=== PATIENT | male | born 1950 | race Caucasian/White ===

== ENCOUNTER 2020-05-05 08:18 | Outpatient (CLI) | payer MEDICARE, SELFPAY ==
[2020-05-05 08:44] LABS: Alanine Aminotransferase 21 U/L (4-50); Albumin Level 3.9 g/dL (3.5-5.1); Alkaline Phosphatase 72 U/L (38-126); Anion Gap -2 mmol/L (8-16); Aspartate Amino Transferase 23 U/L (17-59); Bilirubin,Total 0.5 mg/dL (0.2-1.3); Blood Urea Nitrogen 25 mg/dL (9-20); Calcium 9.6 mg/dL (8.4-10.2); Carbon Dioxide 38 mmol/L (22-30); Chloride 107 mmol/L (98-107); Cholesterol 123 mg/dL (0-200); Estimated Glomerular Filt Rate > 60; Glucose 97 mg/dL (75-110); HDL Direct 43 mg/dL; Potassium 4.7 mmol/L (3.4-5.0); Sodium 143 mmol/L (137-145); Triglycerides 75 mg/dL (<150)
[2020-05-05 08:55] LABS: LDL Cholesterol Direct 62 mg/dL
[2020-05-05 09:15] LABS: Prostate Specific Antigen 1.2 ng/mL (< OR = 4.0)
== END 2020-05-05 08:19 | disposition home or self-care (01) ==
PROVIDERS: PCP Family Medicine Adolescent Medicine; Visit Provider Family Medicine Adolescent Medicine
DX: E78.2 Mixed hyperlipidemia (principal); Z12.5 Encounter for screening for malignant neoplasm of prostate
CPT/HCPCS: 36415; 80053; 80061; 84153; G0103

== ENCOUNTER 2020-09-29 07:45 | Outpatient (CLI) | payer MEDICARE, SELFPAY ==
[2020-09-29 08:42] LABS: Alanine Aminotransferase 23 U/L (4-50); Albumin Level 4.1 g/dL (3.5-5.1); Alkaline Phosphatase 68 U/L (38-126); Anion Gap 4 mmol/L (8-16); Aspartate Amino Transferase 26 U/L (17-59); Bilirubin,Total 0.8 mg/dL (0.2-1.3); Blood Urea Nitrogen 24 mg/dL (9-20); Calcium 9.5 mg/dL (8.4-10.2); Carbon Dioxide 31 mmol/L (22-30); Chloride 105 mmol/L (98-107); Cholesterol 147 mg/dL (0-200); Estimated Glomerular Filt Rate > 60; Glucose 96 mg/dL (65-110); HDL Direct 53 mg/dL; Potassium 4.5 mmol/L (3.4-5.0); Sodium 140 mmol/L (137-145); Triglycerides 71 mg/dL (<150)
[2020-09-29 08:56] LABS: LDL Cholesterol Direct 62 mg/dL
[2020-09-29 09:09] LABS: Prostate Specific Antigen 1.3 ng/mL (< OR = 4.0)
== END 2020-09-29 07:46 | disposition home or self-care (01) ==
PROVIDERS: PCP Family Medicine Adolescent Medicine; Visit Provider Family Medicine Adolescent Medicine
DX: Z12.5 Encounter for screening for malignant neoplasm of prostate (principal); E78.2 Mixed hyperlipidemia
CPT/HCPCS: 36415; 80053; 80061; 84153; G0103

== ENCOUNTER 2021-10-26 07:03 | Outpatient (CLI) | payer MEDICARE, OTHER, SELFPAY ==
[2021-10-26 07:46] LABS: Alanine Aminotransferase 24 U/L (6-50); Albumin Level 4.3 g/dL (3.5-5.1); Alkaline Phosphatase 81 U/L (38-126); Anion Gap 6 mmol/L (8-16); Aspartate Amino Transferase 23 U/L (17-59); Bilirubin,Total 0.6 mg/dL (0.2-1.3); Blood Urea Nitrogen 22 mg/dL (9-20); Calcium 9.2 mg/dL (8.4-10.2); Carbon Dioxide 31 mmol/L (22-30); Chloride 104 mmol/L (98-107); Cholesterol 147 mg/dL (0-200); Estimated Glomerular Filt Rate > 60; Glucose 98 mg/dL (65-110); HDL Direct 48 mg/dL; Potassium 4.5 mmol/L (3.4-5.0); Sodium 141 mmol/L (137-145); Triglycerides 79 mg/dL (<150)
[2021-10-26 07:57] LABS: LDL Cholesterol Direct 66 mg/dL
[2021-10-26 10:05] LABS: Prostate Specific Antigen 1.7 ng/mL (< OR = 4.0)
== END 2021-10-26 07:04 | disposition home or self-care (01) ==
LOC: ANHLAB 07:05
PROVIDERS: PCP Family Medicine Adolescent Medicine; Visit Provider Family Medicine Adolescent Medicine
DX: Z12.5 Encounter for screening for malignant neoplasm of prostate (principal); E78.5 Hyperlipidemia, unspecified; K21.9 Gastro-esophageal reflux disease without esophagitis; I70.0 Atherosclerosis of aorta
CPT/HCPCS: 36415; 80053; 80061; 84153; G0103

== ENCOUNTER 2022-12-28 09:12 | Outpatient (CLI) | payer MEDICARE, SELFPAY ==
[2022-12-28 09:56] LABS: Alanine Aminotransferase 24 U/L (6-50); Albumin Level 4.1 g/dL (3.5-5.1); Alkaline Phosphatase 67 U/L (38-126); Anion Gap 2 mmol/L (8-16); Aspartate Amino Transferase 23 U/L (17-59); Bilirubin,Total 0.6 mg/dL (0.2-1.3); Blood Urea Nitrogen 24 mg/dL (9-20); Calcium 9.7 mg/dL (8.4-10.2); Carbon Dioxide 31 mmol/L (22-30); Chloride 106 mmol/L (98-107); Cholesterol 150 mg/dL (0-200); Estimated Glomerular Filt Rate > 60; Glucose 99 mg/dL (65-110); HDL Direct 46 mg/dL; Potassium 4.3 mmol/L (3.4-5.0); Sodium 139 mmol/L (137-145); Triglycerides 99 mg/dL (<150)
[2022-12-28 10:07] LABS: LDL Cholesterol Direct 83 mg/dL
[2022-12-28 10:25] LABS: Prostate Specific Antigen 2.2 ng/mL (< OR = 4.0)
== END 2022-12-28 09:13 | disposition home or self-care (01) ==
LOC: ANHLAB 09:19
PROVIDERS: PCP Family Medicine Adolescent Medicine; Visit Provider Family Medicine Adolescent Medicine
DX: E78.2 Mixed hyperlipidemia (principal); Z12.5 Encounter for screening for malignant neoplasm of prostate; I70.0 Atherosclerosis of aorta
CPT/HCPCS: 36415; 80053; 80061; 84153; G0103

== ENCOUNTER 2023-04-16 00:39 | Day surgery (SDC) | payer MEDICARE, SELFPAY ==
[2023-02-08 09:34] VITALS: BMI 26.2
--- NOTE | 2023-03-22 08:33 | PC.NURSE ---
Pt was rescheduled from 02/23/2023 to now 04/16/2023. PAT call was completed in February. Pt states no changes in health history or medications since then. Pt aware of new date and time 04/16/2023 at 0600/0730.
--- NOTE | 2023-04-13 10:12 | SUR.PREOP ---
Patient called regarding upcoming procedure. Voicemail left regarding appointment times.
--- NOTE | 2023-04-13 13:14 | PM.HPGS ---
History of Present Illness History of Present Illness Consent: Risks, benefits, and alternatives have been discussed and questions answered. Patient agrees to proceed with procedure. Chief complaint: neoplasm screening Narrative: Cornelius Richards Jr. is a 73 year old male referred for colon cancer screening. He had a polyp removed about 6 years ago. Review of Systems Review of Systems: All systems reviewed & are unremarkable except as noted in HPI and below PMFSH Surgical History Surgical History History of cholecystectomy (1997) History of umbilical hernia repair (1999) Family History Family History Father AAA (abdominal aortic aneurysm) Hypertension Mother Colon cancer Sibling Hypertension Other Family history of arthritis Family history of malignant neoplasm Family history of premature coronary heart disease Social History Social History Smoking status: Never smoker Second hand tobacco smoke exposure: No Alcohol intake: never Substance use: never Substance use type: does not use Living arrangements: with family Occupation/Education: retired Gender identity (if verbalized by the patient): Male Spiritual care concerns: No Meds Home Medications and Allergies Home Medications Medication Instructions Recorded Confirmed Type apple cider vinegar 500 mg tablet 500 mg PO DAILY 10/21/21 03/22/23 History ascorbic acid 1,000 1,000 ea PO DAILY 10/21/21 03/22/23 History fa-gjxvkyivqclv-ihfyioxv powder effervescent pack multivitamin (One-A-Day Essential 1 tablet PO DAILY 10/21/21 03/22/23 History tablet) atorvastatin 40 mg tablet 40 mg PO DAILY #90 tabs 04/13/23 Rx montelukast 10 mg tablet 10 mg PO DAILY #90 tabs 04/13/23 Rx pantoprazole 40 mg tablet,delayed 40 mg PO QAM #90 tabs 04/13/23 Rx release Allergies Allergy/AdvReac Type Severity Reaction Status Date / Time No Known Allergies Allergy Verified 03/22/23 08:31 Exam Resp: Auscultation: clear to auscultation bilaterally Cardio: Rate: regular rate Rhythm: regular rhythm GI: GI Palp: Yes Soft to palpation and No Tenderness to palpation present (GI) Assessment and Plan Assessment and plan (1) Colon cancer screening: Code(s): Z12.11 - Encounter for screening for malignant neoplasm of colon Status: Acute Assessment and Plan: Colonoscopy with possible biopsy or polypectomy or cautery or injection of substances.
[2023-04-16 06:11] VITALS: BP 167/85; PULSE 72; RESP 18; TEMP 36.2; O2SAT 72; BMI 27.0
[2023-04-16] MEDS: LACTATED RINGERS 1,000 ML 150 ML IV CONT (06:41)
--- NOTE | 2023-04-16 07:26 | P.PNAN_ITS ---
Anes - Initial Pre Proc Eval Procedure: Operation Date: 04/16/23 07:30 Proposed Procedures p Screening Colonoscopy - Miguel Allen MD Date/Time: 04/16/23 07:26 Surgeon: Miguel Allen MD Pre Op Diagnosis: neoplasm screening Patient Data Age: 73 Gender: M Height: 1.83 m Weight: 90.4 kg Last Vital Signs Temp 97.1 F L 04/16/23 06:11 Pulse 72 04/16/23 06:11 Resp 18 04/16/23 06:11 BP 167/85 H 04/16/23 06:11 Pulse Ox 72 L 04/16/23 06:11 O2 Del Method Room Air 04/16/23 06:11 Allergies Allergy/AdvReac Type Severity Reaction Status Date / Time No Known Allergies Allergy Verified 03/22/23 08:31 Home Medications Medication Instructions Recorded Confirmed Type apple cider vinegar 500 mg tablet 500 mg PO DAILY 10/21/21 03/22/23 History ascorbic acid 1,000 1,000 ea PO DAILY 10/21/21 03/22/23 History wj-qkaxljtqkhei-pacexypz powder effervescent pack multivitamin (One-A-Day Essential 1 tablet PO DAILY 10/21/21 03/22/23 History tablet) atorvastatin 40 mg tablet 40 mg PO DAILY #90 tabs 04/13/23 Rx montelukast 10 mg tablet 10 mg PO DAILY #90 tabs 04/13/23 Rx pantoprazole 40 mg tablet,delayed 40 mg PO QAM #90 tabs 04/13/23 Rx release Patient hx anesthesia problems: none Family hx anesthesia problems: none Results Review: All pre-operative results and documents have been reviewed as part of the pre- operative evaluation. [facility] Surgical History Surgical History History of cholecystectomy (1997) History of umbilical hernia repair (1999) Family History Family History Father AAA (abdominal aortic aneurysm) Hypertension Mother Colon cancer Sibling Hypertension Other Family history of arthritis Family history of malignant neoplasm Family history of premature coronary heart disease Social History Social History (Updated 10/21/21 @ 08:30 by Nikky Raines MA) Smoking status: Never smoker Second hand tobacco smoke exposure: No Alcohol intake: never Substance use: never Substance use type: does not use Living arrangements: with family Occupation/Education: retired Gender identity (if verbalized by the patient): Male Spiritual care concerns: No Anes - Eval Final PreProcedure Day of Procedure 04/16/23 07:26 Patient weight: normal Heart: regular rate and rhythm Lungs: clear to auscultation Airway: Mallampati scale class II Neurological: alert and oriented Last oral intake: >/= 8 hours ASA classification: II Emergent: no Anesthetic plan: proceed Anesthesia type and monitoring: general GIVS and standard monitoring Results Review: All pre-operative results and documents have been reviewed as part of the pre- operative evaluation. Informed Consent: The patient's anesthetic plan and its attendant risks and benefits were discussed with the patient/family/POA. Questions were solicited and answers provided to the satisfaction of the patient/family/POA.
[2023-04-16 07:49] VITALS: BP 117/59; PULSE 66; RESP 18; O2SAT 98
[2023-04-16 07:59] VITALS: BP 108/60; PULSE 62; RESP 18; O2SAT 99
[2023-04-16 08:09] VITALS: BP 139/78; PULSE 64; RESP 20; O2SAT 100
== END 2023-04-16 08:18 | disposition home or self-care (01) ==
PROVIDERS: PCP Family Medicine Adolescent Medicine; Visit Provider Internal Medicine Gastroenterology
PROC: 0DJD8ZZ Inspection of Lower Intestinal Tract, Via Natural or Artificial Opening Endoscopic (ICD-10-PCS; CPT 45378; principal; 2023-04-16 07:30)
DX: Z12.11 Encounter for screening for malignant neoplasm of colon (principal); K57.30 Diverticulosis of large intestine without perforation or abscess without bleeding; Z90.49 Acquired absence of other specified parts of digestive tract; Z86.010 Personal history of colon polyps; Z82.49 Family history of ischemic heart disease and other diseases of the circulatory system; Z80.0 Family history of malignant neoplasm of digestive organs
CPT/HCPCS: G0105; J2001; J2704; J7120

== ENCOUNTER 2023-07-18 09:00 | Outpatient (RCR) | payer MEDICARE, SELFPAY ==
--- NOTE | 2023-06-15 11:14 | OPREHPOC ---
Outpatient Therapy Plan of Care This is a Multidisciplinary Plan of Care that may contain components documented by all disciplines (PT, OT, and ST.) PT Problem 1 PT Problem #1 Knowledge Deficit PT Goal 1 Goal Pt to be IND with issued HEP Target Visit 10 PT Problem 2 PT Problem #2 Impaired Range of Motion PT Goal 1 Goal Pt to improve active shoulder abduction to 145 deg Target Visit 10 PT Goal 2 Goal Pt to improve functional int rot to within 2 spinal levels of L side. Target Visit 10 PT Problem 3 PT Problem #3 Pain PT Goal 1 Goal Pt to return to bowling without an increase in pain. Target Visit 10 PT Problem 4 PT Problem #4 Impaired Strength PT Goal 1 Goal Pt to report pain no greater than 3/10 in the last week. Target Visit 10 PT Goal 2 Goal Pt to report 75% improvement in overall symptoms. Target Visit 10
--- NOTE | 2023-06-15 11:14 | PTOPEVAL1 ---
Assessment and note entered by Girish Sorensen, PT, DPT Evaluation Information Assessment Status Evaluation Diagnosis R shoulder pain Onset 2-3 weeks Subjective Information Pt states 2-3 weeks ago his R shoulder started randomly, he cannot recall a ILIR. Pt states he is a pretty avid bowler and when bowling 2 weeks ago his shoulder started to ache, the week after that it hurt so bad he only bowled 1/3 games. He declines any pain at rest and with light ADLs, he will get to a 7/10 when bowling. Reported Pain Level Pain Score 0: Self Report Assessment PT Clinical Summary Cornelius presents to therapy today for his initial evaluation with a diagnosis of R shoulder pain. Today he demonstrates decreased strength with shoulder flexion and abduction, decreased active shoulder int rot, and tenderness to palpation and the bicipital groove. He demonstrates slightly forward and rounded shoulders in sitting. Skilled therapy services are indicated to improve strength , functional mobility, and posture, and to return to PLOF without limitations. Plan of Care Interventions Electrical Stimulation,Hot Pack/Cold Pack,Manual Therapy,Neuro Re-education,Patient/Caregiver Educati,Therapeutic Activities,Therapeutic Exercise PT Services Indicated Yes Treatment Frequency and 2x/wk for 10 visits Duration These treatments will address the objective and functional deficits as defined above. The patient will be advanced safely and appropriately in order for the patient to progress towards his/her prior level of function. Additional exercises will be introduced and as well as a comprehensive home exercise program upon discharge, if needed, ?to ensure carryover of functional gains achieved in the clinic. This treatment plan has been reviewed and agreement upon by the patient.
--- NOTE | 2023-07-18 09:51 | OPREHPOC ---
Outpatient Therapy Plan of Care This is a Multidisciplinary Plan of Care that may contain components documented by all disciplines (PT, OT, and ST.) PT Problem 1 PT Problem #1 Knowledge Deficit PT Goal 1 Goal Pt to be IND with issued HEP Target Visit 10 Progress Met PT Problem 2 PT Problem #2 Impaired Range of Motion PT Goal 1 Goal Pt to improve active shoulder abduction to 145 deg Target Visit 10 Progress Met PT Goal 2 Goal Pt to improve functional int rot to within 2 spinal levels of L side. Target Visit 10 Progress Met PT Problem 3 PT Problem #3 Pain PT Goal 1 Goal Pt to return to bowling without an increase in pain. Target Visit 10 Progress Met PT Problem 4 PT Problem #4 Impaired Strength PT Goal 1 Goal Pt to report pain no greater than 3/10 in the last week. Target Visit 10 Progress Met PT Goal 2 Goal Pt to report 75% improvement in overall symptoms. Target Visit 10 Progress Met
--- NOTE | 2023-07-18 09:52 | PTOPDC ---
Assessment and note entered by Jl Ferrer, PT Evaluation Information Assessment Status Discharge Diagnosis R shoulder pain Onset 2-3 weeks Subjective Information Reports that he tried rolling a bowling ball this week and was able to do it over 6 times without increased pain. Reports that he had no pain and has been active outside as well with his shoulder. Feels comfortable with his exercises and plans to continue them. Feels comfortable with discharge at this time. Reported Pain Level Pain Score 0: Self Report Assessment PT Clinical Summary Patient met all goals for therapy at this time and is suitable for discharge. Reviewed HEP and patient demonstrated proper form and compliance with exercises to continue on own. No concerns at this time with discharge. Plan of Care PT Services Indicated D/C to HEP
== END 2023-07-18 10:24 | disposition home or self-care (01) ==
LOC: ANHGOSHPT 09:00
PROVIDERS: PCP Family Medicine Adolescent Medicine; Visit Provider Orthopaedic Surgery
DX: M77.8 Other enthesopathies, not elsewhere classified (principal)
CPT/HCPCS: 97110; 97140; 97161; 97530

== ENCOUNTER 2024-01-02 08:00 | Outpatient (CLI) | payer MEDICARE, SELFPAY ==
[2024-01-02 09:06] LABS: Basophils Absolute Auto 0.1 K/mm3 (0.0-0.1); Basophils Percent Auto 1.4 % (0.2-1.2); Eosinophils Absolute Auto 0.3 K/mm3 (0-0.3); Eosinophils Percent Auto 5.6 % (0-4.4); Hematocrit 47.8 % (42.0-52.0); Hemoglobin 15.2 g/dL (14.0-18.0); Immature Granulocyte Absolute 0.01 K/mm3 (0.00-0.031); Immature Granulocyte Percent A 0.2 % (0-0.5); Lymphocytes Absolute Auto 1.07 K/mm3 (0.9-3.2); Lymphocytes Percent Auto 22.1 % (18.3-44.2); Mean Corpuscular HGB Conc 31.8 g/dl (32-36); Mean Corpuscular Hemoglobin 29.5 pg (26-34); Mean Corpuscular Volume 92.6 fl (80-100); Mean Platelet Volume 10.6 fl (7.4-10.4); Monocytes Absolute Auto 0.6 K/mm3 (0.1-0.6); Monocytes Percent Auto 11.5 % (2.6-8.5); Neutrophils Absolute Auto 2.9 K/mm3 (1.3-6.7); Neutrophils Percent Auto 59.2 % (45.5-73.1); Platelet Count Result 204 k/mm3 (150-375); Red Blood Count 5.16 M/mm3 (4.6-6.20); Red Cell Distribution Width 14.2 % (11.5-14.5); White Blood Count 4.9 K/mm3 (4.5-10.0)
[2024-01-02 09:08] LABS: Alanine Aminotransferase 28 U/L (6-50); Albumin Level 4.2 g/dL (3.5-5.1); Alkaline Phosphatase 70 U/L (38-126); Anion Gap 8 mmol/L (4-12); Aspartate Amino Transferase 26 U/L (17-59); Bilirubin,Total 1.1 mg/dL (0.2-1.3); Blood Urea Nitrogen 31 mg/dL (9-20); Calcium 9.5 mg/dL (8.4-10.2); Carbon Dioxide 28 mmol/L (22-30); Chloride 106 mmol/L (98-107); Estimated Glomerular Filt Rate > 60; Glucose 95 mg/dL (65-110); Potassium 4.2 mmol/L (3.4-5.0); Sodium 142 mmol/L (137-145)
[2024-01-02 09:37] LABS: Hemoglobin A1C 5.5 % (<5.7)
== END 2024-01-02 08:01 | disposition home or self-care (01) ==
PROVIDERS: PCP Family Medicine Adolescent Medicine; Referring Provider Family Medicine Adolescent Medicine; Visit Provider Orthopaedic Surgery
DX: M25.511 Pain in right shoulder (principal); Z79.1 Long term (current) use of non-steroidal anti-inflammatories (NSAID); I70.0 Atherosclerosis of aorta; Z12.5 Encounter for screening for malignant neoplasm of prostate; Z13.1 Encounter for screening for diabetes mellitus; M25.561 Pain in right knee
CPT/HCPCS: 36415; 80053; 83036; 84153; 85025; G0103

== ENCOUNTER 2024-01-02 09:48 | Outpatient (RCR) | payer MEDICARE, SELFPAY ==
--- NOTE | 2024-01-02 10:45 | PTOPEVDC ---
Assessment and note entered by Ange Hayden DPT Thank you for referring Cornelius Kingindra Zhong to [facility].? An evaluation has been completed. No further treatment is needed. Evaluation Information Assessment Status Evaluation ICD-10 Condition Codes (PT) M25.561 Subjective Information Pt reports R knee pain that started a few months ago. Highest pain in last week 05/12 and only with navigating stairs the wrong way . Returns to MD in 6 weeks. Patient goal: get some exercises Reported Pain Level Pain Score 0: Self Report Assessment PT Clinical Summary The patient is presenting to skilled therapy with a history of R knee pain and orders for 1 visit only for HEP. He has been thoroughly educated in HEP for quads and hamstring stretching, as well as hip abduction, external rotation, and core strengthening in order to reduce pain with stairs. He has been educated to follow up with MD as needed. Plan of Care PT Services Indicated No Treatment Frequency and - Duration
== END 2024-01-02 10:57 | disposition home or self-care (01) ==
LOC: ANHGOSHPT 09:48
PROVIDERS: PCP Family Medicine Adolescent Medicine; Visit Provider Orthopaedic Surgery
DX: M25.561 Pain in right knee (principal)
CPT/HCPCS: 97110; 97161; 97530

== ENCOUNTER 2024-05-08 05:41 | Inpatient (IN) | payer MEDICARE, SELFPAY ==
[2024-05-08] VITALS (15 sets, daily range): BP systolic 122–163; BP diastolic 54–96; PULSE 65–89; RESP 15–20; TEMP 36.2–37.3; O2SAT 92–100; BMI 28.0
--- NOTE | ~2024-05-08 | CT_ITS ---
CT of the Abdomen and Pelvis: Indication: Abdominal pain Technique: 2.5 mm axial scans were obtained through the abdomen and pelvis following intravenous adm inistration of 100 cc of Omnipaque 350. Dose reduction technique was used on this scan by utilizing a utomated exposure control and iterative reconstruction technique. The dose-length product (DLP) was 7 20.16 mGy-cm. Findings: Scans through the lung bases demonstrate minimal atelectatic changes. The liver, spleen, pancreas, and adrenal glands are within normal limits. Status post cholecystectomy . Parapelvic renal cysts are present. Infrarenal abdominal aortic aneurysm measures 3.5 cm in diamete r. No lymphadenopathy. The appendix is extensively dilated up to 15 mm, with hyperenhancement of the appendiceal mucosa. The re is a phlegmon or early abscess of the appendiceal tip, measuring 3.8 x 3.8 cm (axial image 156 for example). No free air. Images through the pelvis were performed. Urinary bladder unremarkable. No ascites. Small to moderate bilateral fat-containing inguinal hernias are present. 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 Impression: Acute appendicitis with 3.8 x 3.8 cm phlegmon versus early abscess at the appendiceal tip. 3.5 cm infrarenal abdominal aortic aneurysm. Small to moderate bilateral fat-containing hernias. Reviewed, dictated and finalized at [facility]. [employer] Impression: Acute appendicitis with 3.8 x 3.8 cm phlegmon versus early abscess at the appen diceal tip. 3.5 cm infrarenal abdominal aortic aneurysm. Small to moderate bilateral fat-containing hernias.
--- OUTSIDE RECORDS SUMMARY | 2024-05-08 05:43 | XMS_ITS | Clinical Summary ---
Author Organization [facility] Address [address], [address] [address] Phone Care Team Providers Care Assistant Quality Manager Name Role Phone Harshil Schultz MD Primary Care Provider + Social History Tobacco Use Types Packs/Day Years Used Date Smoking Tobacco: Never Assessed Sex and Gender Information Value Date Recorded Sex Assigned at Not on file Legal Sex Male 9:10 PM CDT Gender Identity Not on file Sexual Orientation Not on file Plan of Treatment Health Maintenance Due Date Last Done Comments Hepatitis C Virus (HCV) Screening 1950 TdaP Immunization 1950 Pneumococcal Immunization (5 0+ years) (1 of 1 - PCV) 1998 Zoster Immunization (1 of 2) 1998 Respiratory Syncytial Virus (RSV) Immunization (Adult) (1 - 1-dose 75+ series) 2023 Influenza Immunization (#1) 2023 SARS-COV-2 Immunization ( season) 2023 Colonoscopy High Risk Discontinued 02/21/2018 Colonoscopy Discontinued 02/21/2018 Colorectal Cancer Screening Discontinued Cologuard Discontinued Hepatitis B Immunization Aged Out No longer eligible based on patient's age to complete this topic Immunochemical Fecal Occult Blood Discontinued Meningococcal Immunization (ACWY) Aged Out No longer eligible based on patient's age to complete this topic Rotavirus Immunization Aged Out No lo nger eligible based on patient's age to complete this topic Procedures Procedure Name Priority Date/Time Associated Diagnosis Comments HM COLONOSCOPY Routine 02/21/2018 from Last 3 Months or Most Recently Relevant to Health Maintenance Results * HM COLONOSCOPY (02/21/2018) us Darvin Beth DO PROCEDURE/MINOR SURGICAL ORDERA BLES Final Result from Last 3 Months or Most Recently Relevant to Health Maintenance Insurance MEDICARE Care Teams Assistant Quality Manager Relationship Specialty Start Date End Date Harshil Schultz MD [address] [place] [address] PCP - General Family Medicine 12/26/17
[2024-05-08 06:04] LABS: Basophils Absolute Auto 0.1 K/mm3 (0.0-0.1); Basophils Percent Auto 0.7 % (0.2-1.2); Eosinophils Absolute Auto 0.2 K/mm3 (0-0.3); Eosinophils Percent Auto 2.8 % (0-4.4); Hematocrit 46.6 % (42.0-52.0); Immature Granulocyte Absolute 0.02 K/mm3 (0.00-0.031); Immature Granulocyte Percent A 0.2 % (0-0.5); Immature Platelet Fraction Pct 5.9 % (0.9-11.2); Lymphocytes Absolute Auto 1.08 K/mm3 (0.9-3.2); Lymphocytes Percent Auto 12.9 % (18.3-44.2); Mean Corpuscular HGB Conc 32.2 g/dl (32-36); Mean Corpuscular Hemoglobin 28.8 pg (26-34); Mean Corpuscular Volume 89.4 fl (80-100); Monocytes Percent Auto 11.6 % (2.6-8.5); Neutrophils Percent Auto 71.8 % (45.5-73.1); Platelet Count Result 164 k/mm3 (150-375); Red Blood Count 5.21 M/mm3 (4.6-6.20); Red Cell Distribution Width 13.1 % (11.5-14.5); White Blood Count 8.3 K/mm3 (4.5-10.0)
[2024-05-08 06:13] LABS: Alanine Aminotransferase 19 U/L (6-50); Albumin Level 3.9 g/dL (3.5-5.1); Alkaline Phosphatase 80 U/L (38-126); Anion Gap 9 mmol/L (4-12); Aspartate Amino Transferase 27 U/L (17-59); Bilirubin,Total 1.1 mg/dL (0.2-1.3); Blood Urea Nitrogen 25 mg/dL (9-20); Calcium 9.7 mg/dL (8.4-10.2); Carbon Dioxide 26 mmol/L (22-30); Chloride 106 mmol/L (98-107); Estimated CRCL calculation 73 ml/min; Estimated Glomerular Filt Rate > 60; Glucose 101 mg/dL (65-110); Lipase 65 U/L (23-300); Potassium 4.4 mmol/L (3.4-5.0); Sodium 141 mmol/L (137-145)
--- NOTE | 2024-05-08 06:28 | ED_ITS ---
HPI - General Adult General Chief complaint: Abdominal Pain <Jd Wright MD - Last Filed: 05/08/24 06:29> Stated complaint: abd pain <Jd Wright MD - Last Filed: 05/08/24 06:29> Time Seen by Provider: 05/08/24 06:19 <Jd Wright MD - Last Filed: 05/08/24 06:29> History of Present Illness HPI narrative: Patient 74-year-old gentleman presents emergency department with chief complaint of abdominal pain. Patient reports he woke up around 2:00 a.m. go to the bathroom and hurt started having pain in the right lower quadrant patient states the pain is worse whenever he moves in whenever he pushes on his abdomen patient reports had a prior cholecystectomy reports that his bowel movements have been normal patient does report that he had some chills <Jd Wright MD - Last Filed: 05/08/24 06:29> Related Data Home medications: Home Medications ?Medication ?Instructions ?Recorded ?Confirmed ?Last Taken ?Type apple cider vinegar 500 mg tablet 500 mg PO DAILY 10/21/21 05/08/24 05/07/24 History ascorbic acid 1,000 1,000 ea PO DAILY 10/21/21 05/08/24 05/07/24 History bx-lnmbxfszbooh-ljtvkbxe powder effervescent pack multivitamin (One-A-Day Essential 1 tablet PO DAILY 10/21/21 05/08/24 05/07/24 History tablet) montelukast 10 mg tablet 10 mg PO HS 05/08/24 05/08/24 05/07/24 History naproxen sodium 220 mg capsule 220 mg PO BID PRN pain 05/08/24 05/08/24 05/06/24 History (Aleve) <Jd Wright MD - Last Filed: 05/08/24 06:29> Allergies/adverse reactions: Allergies Allergy/AdvReac Type Severity Reaction Status Date / Time No Known Allergies Allergy Verified 05/08/24 09:47 <Jd Wright MD - Last Filed: 05/08/24 06:29> Review of Systems 2 Review of Systems: A 10 system review of systems was completed on the patient and is negative except for what is stated in the HPI. Nursing and ancillary documentation was reviewed. <Jd Wright MD - Last Filed: 05/08/24 06:29> PMFSH Past Medical History Medical History: Medical History High cholesterol <Jd Wright MD - Last Filed: 05/08/24 06:29> Surgical History Surgical History: Surgical History History of foot surgery broken toe surgery 20yr ago History of umbilical hernia repair (1999) History of cholecystectomy (1997) <Jd Wright MD - Last Filed: 05/08/24 06:29> Family History Family History: Family History Father AAA (abdominal aortic aneurysm) Hypertension Mother Breast cancer Sibling Hypertension Other Family history of arthritis Family history of malignant neoplasm Family history of premature coronary heart disease <Jd Wright MD - Last Filed: 05/08/24 06:29> Social History Social History: Social History Smoking status: Former smoker Second hand tobacco smoke exposure: No Alcohol intake: never Substance use: never Substance use type: does not use Do You Feel Safe in your Home?: Yes Lack of Transportation: No Lack of Food: Never True Current Housing: I Have Housing Concerned About Future Housing: No Difficulty Paying Gas/Electric Bills: No Difficulty Paying for Meds: No Currently Unemployed: No Education: High School Diploma/GED Difficulty w/ Childcare or Family Care: No Living arrangements: with family Occupation/Education: retired 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 HEAD: Normocephalic, atraumatic. EYES: PERRLA and EOMI. ENT: Nares clear, no rhinorrhea or epistaxis. Mucous membranes moist. NECK: Supple. CHEST: Clear to auscultation. No respiratory distress. HEART: Regular rate and rhythm. No murmur heard. Normal peripheral pulses. ABDOMEN: Soft, tenderness to palpation right lower quadrant, nondistended, normal active bowel sounds. EXTREMITIES: Normal range of motion. No edema. SKIN: Warm, dry, no rash. NEURO: No focal deficits. Alert and oriented x3. PSYCH: Normal mood and affect. <Jd Wright MD - Last Filed: 05/08/24 06:29> Course Reevaluation(s) Reevaluation #1: 74-year-old male presents emergency department for evaluation for right lower quadrant pain. Patient states he was feeling ill yesterday but then began having acute right lower quadrant pain at approximately 2:00 a.m.. Patient is afebrile with no leukocytosis but does have significant right lower quadrant tenderness. CT scan showed acute appendicitis with a 3 x 8 x 3 x 8 cm phlegmon versus early abscess at the appendiceal tip. Patient has prior history of umbilical hernia repair and cholecystectomy and 1998 done at [place]. Patient declined a medic occasions for pain control this time. Patient was started on Zosyn. Family prefers to have Dr. Carrillo. Dr. Marin was on-call and accepted the patient as primary. <Onel Ackerman MD - Last Filed: 05/08/24 18:05> Vital Signs Vital signs: Vital Signs Temperature 99.2 F 05/08/24 05:57 Pulse Rate 89 05/08/24 05:57 Respiratory Rate 16 05/08/24 05:57 Blood Pressure 159/89 H 05/08/24 05:57 Pulse Oximetry 97 05/08/24 05:57 Temperature 98.8 F 05/08/24 17:18 Pulse Rate 71 05/08/24 17:50 Respiratory Rate 18 05/08/24 17:50 Blood Pressure 134/74 05/08/24 17:50 Pulse Oximetry 94 05/08/24 17:50 Oxygen Delivery Room Air 05/08/24 17:50 Oxygen Flow Rate 8 05/08/24 17:30 <Jd Wright MD - Last Filed: 05/08/24 06:29> Vital Signs Temperature 99.2 F 05/08/24 05:57 Pulse Rate 89 05/08/24 05:57 Respiratory Rate 16 05/08/24 05:57 Blood Pressure 159/89 H 05/08/24 05:57 Pulse Oximetry 97 05/08/24 05:57 Temperature 98.8 F 05/08/24 17:18 Pulse Rate 71 05/08/24 17:50 Respiratory Rate 18 05/08/24 17:50 Blood Pressure 134/74 05/08/24 17:50 Pulse Oximetry 94 05/08/24 17:50 Oxygen Delivery Room Air 05/08/24 17:50 Oxygen Flow Rate 8 05/08/24 17:30 <Onle Ackerman MD - Last Filed: 05/08/24 18:05> Medical Decision Making Vital Signs Vital Signs: Vital Signs Temperature 99.2 F 05/08/24 05:57 Pulse Rate 89 05/08/24 05:57 Respiratory Rate 16 05/08/24 05:57 Blood Pressure 159/89 H 05/08/24 05:57 Pulse Oximetry 97 05/08/24 05:57 Temperature 98.8 F 05/08/24 17:18 Pulse Rate 71 05/08/24 17:50 Respiratory Rate 18 05/08/24 17:50 Blood Pressure 134/74 05/08/24 17:50 Pulse Oximetry 94 05/08/24 17:50 Oxygen Delivery Room Air 05/08/24 17:50 Oxygen Flow Rate 8 05/08/24 17:30 <Jd Wright MD - Last Filed: 05/08/24 06:29> Vital Signs Temperature 99.2 F 05/08/24 05:57 Pulse Rate 89 05/08/24 05:57 Respiratory Rate 16 05/08/24 05:57 Blood Pressure 159/89 H 05/08/24 05:57 Pulse Oximetry 97 05/08/24 05:57 Temperature 98.8 F 05/08/24 17:18 Pulse Rate 71 05/08/24 17:50 Respiratory Rate 18 05/08/24 17:50 Blood Pressure 134/74 05/08/24 17:50 Pulse Oximetry 94 05/08/24 17:50 Oxygen Delivery Room Air 05/08/24 17:50 Oxygen Flow Rate 8 05/08/24 17:30 <Onel Ackerman MD - Last Filed: 05/08/24 18:05> Lab Data Result diagrams: 05/08/24 05:56 05/08/24 05:56 <Jd Wright MD - Last Filed: 05/08/24 06:29> Labs: Lab Results 05/08/24 05/08/24 Range/Units 05:56 06:33 WBC 8.3 (4.5-10.0) K/mm3 RBC 5.21 (4.6-6.20) M/mm3 Hgb 15.0 (14.0-18.0) g/dL Hct 46.6 (42.0-52.0) % MCV 89.4 (80-100) fl MCH 28.8 (26-34) pg MCHC 32.2 (32-36) g/dl RDW 13.1 (11.5-14.5) % Plt Count 164 (150-375) k/mm3 MPV 11.0 H (7.4-10.4) fl Immature Gran % (Auto) 0.2 (0-0.5) % Neut % (Auto) 71.8 (45.5-73.1) % Lymph % (Auto) 12.9 L (18.3-44.2) % [place] % (Auto) 11.6 H (2.6-8.5) % Eos % (Auto) 2.8 (0-4.4) % Baso % (Auto) 0.7 (0.2-1.2) % Lymph # (Auto) 1.08 (0.9-3.2) K/mm3 [place] # (Auto) 1.0 H (0.1-0.6) K/mm3 Eos # (Auto) 0.2 (0-0.3) K/mm3 Baso # (Auto) 0.1 (0.0-0.1) K/mm3 Abs Immat Gran (auto) 0.02 (0.00-0.031) K/mm3 Absolute Neuts (auto) 6.0 (1.3-6.7) K/mm3 Absolute Nucleated RBC 0.000 (0.0-0.012) K/mm3 Nucleated RBC % 0.0 (0.0-0.2) % % Immature Plt Fraction 5.9 (0.9-11.2) % Sodium 141 (137-145) mmol/L Potassium 4.4 (3.4-5.0) mmol/L Chloride 106 (98-107) mmol/L Carbon Dioxide 26 (22-30) mmol/L Anion Gap 9 (4-12) mmol/L BUN 25 H (9-20) mg/dL Creatinine 0.83 (0.7-1.3) mg/dL Estim Creat Clear Calc 73 ml/min Estimated GFR > 60 (59 - ) Glucose 101 (65-110) mg/dL Calcium 9.7 (8.4-10.2) mg/dL Total Bilirubin 1.1 (0.2-1.3) mg/dL AST 27 (17-59) U/L ALT 19 (6-50) U/L Alkaline Phosphatase 80 (38-126) U/L Total Protein 7.0 (6.3-8.2) g/dL Albumin 3.9 (3.5-5.1) g/dL Lipase 65 (23-300) U/L Urine Color Yellow (Yellow) Urine Appearance Clear (Clear) Urine pH 6.5 (5.0-9.0) Ur Specific [place] 1.023 (1.001-1.035) Urine Protein Trace (Negative) mg/dL Urine Glucose (UA) Negative (Negative) mg/dL Urine Ketones Trace H (Negative) mg/dL Ur Blood (Man) Negative (Negative) Urine Nitrate Negative (Negative) Urine Bilirubin Negative (Negative) Urine Urobilinogen 0.2 (<2.0) mg/dL Leukocyte Esterase Rfl Negative (Negative) SHARLA/UL Urine RBC 0-2 (0-2) /hpf Urine WBC 0-5 (0-3) /hpf Ur Squamous Epith Cells None seen (Few) /hpf Urine Bacteria None seen /hpf Urine Casts 0-2 <Jd Wright MD - Last Filed: 05/08/24 06:29> Lab Results 05/08/24 05/08/24 Range/Units 05:56 06:33 WBC 8.3 (4.5-10.0) K/mm3 RBC 5.21 (4.6-6.20) M/mm3 Hgb 15.0 (14.0-18.0) g/dL Hct 46.6 (42.0-52.0) % MCV 89.4 (80-100) fl MCH 28.8 (26-34) pg MCHC 32.2 (32-36) g/dl RDW 13.1 (11.5-14.5) % Plt Count 164 (150-375) k/mm3 MPV 11.0 H (7.4-10.4) fl Immature Gran % (Auto) 0.2 (0-0.5) % Neut % (Auto) 71.8 (45.5-73.1) % Lymph % (Auto) 12.9 L (18.3-44.2) % [place] % (Auto) 11.6 H (2.6-8.5) % Eos % (Auto) 2.8 (0-4.4) % Baso % (Auto) 0.7 (0.2-1.2) % Lymph # (Auto) 1.08 (0.9-3.2) K/mm3 [place] # (Auto) 1.0 H (0.1-0.6) K/mm3 Eos # (Auto) 0.2 (0-0.3) K/mm3 Baso # (Auto) 0.1 (0.0-0.1) K/mm3 Abs Immat Gran (auto) 0.02 (0.00-0.031) K/mm3 Absolute Neuts (auto) 6.0 (1.3-6.7) K/mm3 Absolute Nucleated RBC 0.000 (0.0-0.012) K/mm3 Nucleated RBC % 0.0 (0.0-0.2) % % Immature Plt Fraction 5.9 (0.9-11.2) % Sodium 141 (137-145) mmol/L Potassium 4.4 (3.4-5.0) mmol/L Chloride 106 (98-107) mmol/L Carbon Dioxide 26 (22-30) mmol/L Anion Gap 9 (4-12) mmol/L BUN 25 H (9-20) mg/dL Creatinine 0.83 (0.7-1.3) mg/dL Estim Creat Clear Calc 73 ml/min Estimated GFR > 60 (59 - ) Glucose 101 (65-110) mg/dL Calcium 9.7 (8.4-10.2) mg/dL Total Bilirubin 1.1 (0.2-1.3) mg/dL AST 27 (17-59) U/L ALT 19 (6-50) U/L Alkaline Phosphatase 80 (38-126) U/L Total Protein 7.0 (6.3-8.2) g/dL Albumin 3.9 (3.5-5.1) g/dL Lipase 65 (23-300) U/L Urine Color Yellow (Yellow) Urine Appearance Clear (Clear) Urine pH 6.5 (5.0-9.0) Ur Specific [place] 1.023 (1.001-1.035) Urine Protein Trace (Negative) mg/dL Urine Glucose (UA) Negative (Negative) mg/dL Urine Ketones Trace H (Negative) mg/dL Ur Blood (Man) Negative (Negative) Urine Nitrate Negative (Negative) Urine Bilirubin Negative (Negative) Urine Urobilinogen 0.2 (<2.0) mg/dL Leukocyte Esterase Rfl Negative (Negative) SHARLA/UL Urine RBC 0-2 (0-2) /hpf Urine WBC 0-5 (0-3) /hpf Ur Squamous Epith Cells None seen (Few) /hpf Urine Bacteria None seen /hpf Urine Casts 0-2 <Onel Ackerman MD - Last Filed: 05/08/24 18:05> Discharge Plan Discharge Clinical Impression: Acute appendicitis Qualifiers: Acute appendicitis type: with localized peritonitis Appendicitis gangrene presence: unspecified whether gangrene present Appendicitis perforation presence: unspecified whether perforation present Appendicitis abscess presence: unspecified whether abscess present Qualified Code(s): K35.30 - Acute appendicitis with localized peritonitis, without perforation or gangrene <Jd Wright MD - Last Filed: 05/08/24 06:29> Patient Disposition: Still a Patient <Jd Wright MD - Last Filed: 05/08/24 06:29> Condition: Stable <Jd Wright MD - Last Filed: 05/08/24 06:29>
[2024-05-08] MEDS: SODIUM CHLORIDE 0.9% IV 1,000 ML 999 ML IV CONT (06:30)
[2024-05-08] MEDS: ONDANSETRON INJ 4 MG/2 ML VIAL IV PUSH (06:31)
[2024-05-08] MEDS: MORPHINE SULFATE (*CRX) 4 MG/ML INJ IV PUSH ×2 (06:31→20:17)
--- OUTSIDE RECORDS SUMMARY | 2024-05-08 06:39 | XMS_ITS | Clinical Summary ---
Author Organization [facility] Address [address], [address] [address] Phone Care Team Providers Care [employer] Docent Name Role Phone Harshil Schultz MD Primary [...] to Health Maintenance Insurance MEDICARE Care Teams [employer] Docent Relationship Specialty Start Date End Date Harshil Schultz MD [address] [place] [address] PCP - General Family Medicine 12/26/17
[2024-05-08 06:45] LABS: Add Urine Microscopic? YES; Appearance Urine Clear (Clear); Bacteria Urine None Seen /hpf; Bilirubin Urine Negative (Negative); Blood Urine Negative (Negative); Color Urine Yellow (Yellow); Glucose Urine UA Negative (Negative); Ketones Urine Trace mg/dL (Negative); Leukocyte Esterase Ur Negative LEU/UL (Negative); Nitrate Urine Negative (Negative); Non Pathogenic Casts 0-2; Protein Urine Trace mg/dL (Negative); RBC Urine 0-2 /hpf (0-2); Specific Grav Ur 1.023 (1.001-1.035); Squamous Epithelial Cell Urine None Seen /hpf (Few); Urobilinogen Urine 0.2 mg/dL (<2.0); WBC Urine 0-5 /hpf (0-3); pH Urine 6.5 (5.0-9.0)
[2024-05-08] MEDS: PIPERACILLN/TAZ 3.375GM/NS50ML 3.375 GM/50 ML BAG IVPB ×3 (08:08→20:19)
[2024-05-08] MEDS: SODIUM CHLORIDE 0.9% IV 1,000 ML 125 ML IV CONT (08:08)
--- NOTE | 2024-05-08 09:37 | ADMGEN ---
This patient, Cornelius Richards, was admitted to [facility] Room 325-02. Patient/family oriented to hospital policies and general routines including ID bracelet, bed and alarms, visiting hours, pain management, procedures, bathroom and other care routines, personal items, smoking policy, room service/diet, and visiting hours. Information on how to activate the Rapid Response Team has been discussed. Patient/Family are encouraged to report perceived risks to care and to ask questions if they do not understand what they are told or what they should do.
--- NOTE | 2024-05-08 12:50 | P.HP_ITS ---
H&P: HPI History of Present Illness Date/Time: 05/08/24 12:50 Chief Complaint: Right lower quadrant pain Narrative: Patient was awakened about 2:00 a.m. this morning with right lower quadrant pain he got up to urinate and noticed he was having pain in the right lower quadrant. He reports that yesterday he did not feel right all day but no specific complaints or abdominal pain. His right lower quadrant pain persisted. He woke up his , who is an RN, and she noticed right lower quadrant tenderness. He came to the emergency room. His white blood cell count was normal. He was noted to be tender in the right lower quadrant. CT scan showed evidence of acute appendicitis with phlegmon at the distal tip of the appendix. It was also concerning for a possible abscess. He is admitted now with plans to proceed with laparoscopic appendectomy later today. Review of Systems Review of Systems: All systems reviewed & are unremarkable except as noted in HPI and below (HPI) [facility] Past Medical History Medical History High cholesterol Surgical History Surgical History History of foot surgery broken toe surgery 20yr ago History of umbilical hernia repair (1999) History of cholecystectomy (1997) Family History Family History Father AAA (abdominal aortic aneurysm) Hypertension Mother Breast cancer Sibling Hypertension Other Family history of arthritis Family history of malignant neoplasm Family history of premature coronary heart disease Social History Social History Smoking status: Former smoker Second hand tobacco smoke exposure: No Alcohol intake: never Substance use: never Substance use type: does not use Do You Feel Safe in your Home?: Yes Lack of Transportation: No Lack of Food: Never True Current Housing: I Have Housing Concerned About Future Housing: No Difficulty Paying Gas/Electric Bills: No Difficulty Paying for Meds: No Currently Unemployed: No Education: High School Diploma/GED Difficulty w/ Childcare or Family Care: No Living arrangements: with family Occupation/Education: retired Additional occupation/education comments: inventory manager Gender identity (if verbalized by the patient): Male Spiritual care concerns: No Meds Home Medications and Allergies Home Medications ?Medication ?Instructions ?Recorded ?Confirmed ?Type apple cider vinegar 500 mg tablet 500 mg PO DAILY 10/21/21 05/08/24 History ascorbic acid 1,000 1,000 ea PO DAILY 10/21/21 05/08/24 History ck-saervtuxuwfo-vimvmhzx powder effervescent pack multivitamin (One-A-Day Essential 1 tablet PO DAILY 10/21/21 05/08/24 History tablet) atorvastatin 40 mg tablet 40 mg PO DAILY #90 tabs 12/24/23 05/08/24 Rx pantoprazole 40 mg tablet,delayed 40 mg PO QAM #90 tabs 01/03/24 05/08/24 Rx release oxybutynin chloride 5 mg tablet 5 mg PO QHS #90 tabs 01/24/24 05/08/24 Rx montelukast 10 mg tablet 10 mg PO HS 05/08/24 05/08/24 History naproxen sodium 220 mg capsule 220 mg PO BID PRN pain 05/08/24 05/08/24 History (Aleve) Allergies Allergy/AdvReac Type Severity Reaction Status Date / Time No Known Allergies Allergy Verified 05/08/24 09:47 Vital Signs Vital Signs - 24 hr 05/08/24 05:57 05/08/24 08:24 05/08/24 09:57 Temperature 37.3 C Pulse Rate 89 68 Respiratory Rate 16 18 Blood Pressure 159/89 H 149/92 H Pulse Oximetry 97 100 Oxygen Delivery Room Air Exam Const: General: comfortable, no acute distress, alert and awake HENMT: Head: normocephalic and atraumatic Mouth: Yes Normal oral and [place] and [place] michael mucosa present Eyes: Conjunctivae: conjunctivae normal Pupils: Equal, round and reactive pupils present EOM: EOMs intact bilaterally Neck: Neck: normal visual inspection, no lymphadenopathy and nontender Resp: Effort & Inspection: normal respiratory effort Auscultation: clear to auscultation bilaterally Cardio: Rate: regular rate Rhythm: regular rhythm Heart sounds: no gallops, no murmurs and no rubs GI: Inspection: non-distended, scaphoid and no visible herniation GI Palp: Yes Soft to palpation, Yes Tenderness to palpation present (GI) (Right lower quadrant with guarding), Yes Guarding due to palpation present (GI), No Hepatomegaly present and No Splenomegaly present Skin: Lesions: no lesions Rashes: no rashes Neuro: General: no focal motor deficits and CN's II-XI intact bilaterally Cranial nerves: Yes Equal, round and reactive pupils present, Yes Bilaterally intact EOM present, Yes facial symmetry and Yes Midline tongue present Speech: normal speech Motor exam (neuro): 5/5 motor strength present throughout and Motor abnormalities not present Extrem: General: no clubbing, cyanosis or edema and edema Psych: Affect: normal affect Thought process: Normal thought process present Insight: Good insight present (Psych) H&P: Results Labs Labs: Short CBC 05/08/24 Range/Units 05:56 WBC 8.3 (4.5-10.0) K/mm3 Hgb 15.0 (14.0-18.0) g/dL Hct 46.6 (42.0-52.0) % Plt Count 164 (150-375) k/mm3 BMP 05/08/24 05:56 Sodium 141 Potassium 4.4 Chloride 106 Carbon Dioxide 26 BUN 25 H Creatinine 0.83 Glucose 101 Calcium 9.7 Liver Function 05/08/24 Range/Units 05:56 Total Bilirubin 1.1 (0.2-1.3) mg/dL AST 27 (17-59) U/L ALT 19 (6-50) U/L Alkaline Phosphatase 80 (38-126) U/L Albumin 3.9 (3.5-5.1) g/dL Urine 05/08/24 Range/Units 06:33 Urine Color Yellow (Yellow) Urine Appearance Clear (Clear) Urine pH 6.5 (5.0-9.0) Ur Specific [place] 1.023 (1.001-1.035) Urine Protein Trace (Negative) mg/dL Urine Glucose (UA) Negative (Negative) mg/dL Imaging CT scan - abdomen: Attestation: I personally reviewed and interpreted this imaging study as follows: (CT scan abdomen and pelvis) My impression: Significantly abnormal appendix with phlegmon, wall enhancement, inflammatory change consistent with acute appendicitis. Radiologist's impression: Acute appendicitis with 3.8 x 3.8 cm phlegmon versus early abscess at the appendiceal tip. 3.5 cm infrarenal abdominal aortic aneurysm. Small to moderate bilateral fat-containing hernias. Assessment and Plan Assessment and plan (1) Acute appendicitis: Qualifiers: Acute appendicitis type: with localized peritonitis Appendicitis gangrene presence: unspecified whether gangrene present Appendicitis perforation presence: unspecified whether perforation present Appendicitis abscess presence: unspecified whether abscess present Qualified Code(s): K35.30 - Acute appendicitis with localized peritonitis, without perforation or gangrene Code(s): K35.80 - Unspecified acute appendicitis Status: Acute Assessment and Plan: Plan to proceed with robotic laparoscopic appendectomy under general anesthesia. I discussed the procedure and typical recovery time with the patient and his . I discussed the possibility of a gangrenous or even ruptured appendix and abscess. Usual length of the surgery in length of the recovery was discussed. All questions were answered. He understands and agrees to go ahead.
--- NOTE | 2024-05-08 13:10 | WPDHPUPDATE1 ---
History and Physical Update Update Date/Time: 05/08/24 13:10 History and Physical has been reviewed, including an updated exam of the patient. There are NO changes in the patient's condition. Risks, benefits, and alternatives have been discussed and questions answered. Patient agrees to proceed with procedure.
--- NOTE | 2024-05-08 13:56 | PC.NURSE ---
To OR per [stretcher], IV [20 L hand].
[2024-05-08] MEDS: LACTATED RINGERS 1,000 ML 30 ML IV CONT ×2 (14:00→17:18)
--- NOTE | 2024-05-08 14:10 | WPDANESEPPF ---
Anes - Initial Pre Proc Eval Procedure: Operation Date: 05/08/24 14:30 Proposed Procedures p Robotic Assisted Laparoscopic Appendectomy - Zenon Marin MD Date/Time: 05/08/24 14:10 Surgeon: Zenon Marin MD Pre Op Diagnosis: Acute Appendicitis Patient Data Age: 74 Gender: M Height: 1.83 m Weight: 93.6 kg Last Vital Signs Temp 98.9 F 05/08/24 13:50 Pulse 78 05/08/24 13:50 Resp 18 05/08/24 13:50 BP 153/88 H 05/08/24 13:50 Pulse Ox 97 05/08/24 13:50 O2 Del Method Room Air 05/08/24 09:57 Allergies Allergy/AdvReac Type Severity Reaction Status Date / Time No Known Allergies Allergy Verified 05/08/24 09:47 Home Medications ?Medication ?Instructions ?Recorded ?Confirmed ?Type apple cider vinegar 500 mg tablet 500 mg PO DAILY 10/21/21 05/08/24 History ascorbic acid 1,000 1,000 ea PO DAILY 10/21/21 05/08/24 History [id number] powder effervescent pack multivitamin (One-A-Day Essential 1 tablet PO DAILY 10/21/21 05/08/24 History tablet) atorvastatin 40 mg tablet 40 mg PO DAILY #90 tabs 12/24/23 05/08/24 Rx pantoprazole 40 mg tablet,delayed 40 mg PO QAM #90 tabs 01/03/24 05/08/24 Rx release oxybutynin chloride 5 mg tablet 5 mg PO QHS #90 tabs 01/24/24 05/08/24 Rx montelukast 10 mg tablet 10 mg PO HS 05/08/24 05/08/24 History naproxen sodium 220 mg capsule 220 mg PO BID PRN pain 05/08/24 05/08/24 History (Aleve) Laboratory Tests 05/08/24 05/08/24 05:56 06:33 WBC 8.3 K/mm3 (4.5-10.0) RBC 5.21 M/mm3 (4.6-6.20) Hgb 15.0 g/dL (14.0-18.0) Hct 46.6 % (42.0-52.0) MCV 89.4 fl (80-100) MCH 28.8 pg (26-34) MCHC 32.2 g/dl (32-36) RDW 13.1 % (11.5-14.5) Plt Count 164 k/mm3 (150-375) MPV 11.0 H fl (7.4-10.4) Immature Gran % (Auto) 0.2 % (0-0.5) Neut % (Auto) 71.8 % (45.5-73.1) Lymph % (Auto) 12.9 L % (18.3-44.2) [place] % (Auto) 11.6 H % (2.6-8.5) Eos % (Auto) 2.8 % (0-4.4) Baso % (Auto) 0.7 % (0.2-1.2) Lymph # (Auto) 1.08 K/mm3 (0.9-3.2) [place] # (Auto) 1.0 H K/mm3 (0.1-0.6) Eos # (Auto) 0.2 K/mm3 (0-0.3) Baso # (Auto) 0.1 K/mm3 (0.0-0.1) Abs Immat Gran (auto) 0.02 K/mm3 (0.00-0.031) Absolute Neuts (auto) 6.0 K/mm3 (1.3-6.7) Absolute Nucleated RBC 0.000 K/mm3 (0.0-0.012) Nucleated RBC % 0.0 % (0.0-0.2) % Immature Plt Fraction 5.9 % (0.9-11.2) Sodium 141 mmol/L (137-145) Potassium 4.4 mmol/L (3.4-5.0) Chloride 106 mmol/L (98-107) Carbon Dioxide 26 mmol/L (22-30) Anion Gap 9 mmol/L (4-12) BUN 25 H mg/dL (9-20) Creatinine 0.83 mg/dL (0.7-1.3) Estim Creat Clear Calc 73 ml/min Estimated GFR > 60 (59 - ) Glucose 101 mg/dL (65-110) Calcium 9.7 mg/dL (8.4-10.2) Total Bilirubin 1.1 mg/dL (0.2-1.3) AST 27 U/L (17-59) ALT 19 U/L (6-50) Alkaline Phosphatase 80 U/L (38-126) Total Protein 7.0 g/dL (6.3-8.2) Albumin 3.9 g/dL (3.5-5.1) Lipase 65 U/L (23-300) Urine Color Yellow (Yellow) Urine Appearance Clear (Clear) Urine pH 6.5 (5.0-9.0) Ur Specific [place] 1.023 (1.001-1.035) Urine Protein Trace mg/dL (Negative) Urine Glucose (UA) Negative mg/dL (Negative) Urine Ketones Trace H mg/dL (Negative) Ur Blood (Man) Negative (Negative) Urine Nitrate Negative (Negative) Urine Bilirubin Negative (Negative) Urine Urobilinogen 0.2 mg/dL (<2.0) Leukocyte Esterase Rfl Negative SHARLA/UL (Negative) Urine RBC 0-2 /hpf (0-2) Urine WBC 0-5 /hpf (0-3) Ur Squamous Epith Cells None seen /hpf (Few) Urine Bacteria None seen /hpf Urine Casts 0-2 Patient hx anesthesia problems: none Family hx anesthesia problems: none Results Review: All pre-operative results and documents have been reviewed as part of the pre-operative evaluation. [facility] Past Medical History Medical History High cholesterol Surgical History Surgical History History of foot surgery broken toe surgery 20yr ago History of umbilical hernia repair (1999) History of cholecystectomy (1997) Family History Family History Father AAA (abdominal aortic aneurysm) Hypertension Mother Breast cancer Sibling Hypertension Other Family history of arthritis Family history of malignant neoplasm Family history of premature coronary heart disease Social History Social History Smoking status: Former smoker Second hand tobacco smoke exposure: No Alcohol intake: never Substance use: never Substance use type: does not use Do You Feel Safe in your Home?: Yes Lack of Transportation: No Lack of Food: Never True Current Housing: I Have Housing Concerned About Future Housing: No Difficulty Paying Gas/Electric Bills: No Difficulty Paying for Meds: No Currently Unemployed: No Education: High School Diploma/GED Difficulty w/ Childcare or Family Care: No Living arrangements: with family Occupation/Education: retired 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 ) Neurological: alert and oriented Last oral intake: >/= 8 hours ASA classification: II Emergent: no Anesthetic plan: proceed Anesthesia type and monitoring: general ETT and standard monitoring Results Review: All pre-operative results and documents have been reviewed as part of the pre-operative evaluation. Overall good health, hyperlipidemia. Physically active w walking, caring for 5 acres land, splitting wood, no cp or sob. Informed Consent: The patient's anesthetic plan and its attendant risks and benefits were discussed with the patient/family/POA. Questions were solicited and answers provided to the satisfaction of the patient/family/POA.
[2024-05-08] MEDS: BUPIVACAINE/EPINEPHRINE 0.5% 50 ML VIAL 30 ML INFILTRATE (15:42)
--- NOTE | 2024-05-08 17:34 | P.OP_ITS ---
Procedure Note - Detailed Date of Procedure 05/08/24 Pre-op Diagnosis Acute Appendicitis Post-op Diagnosis Same (Ruptured appendicitis with abscess) Procedure Performed Robotic laparoscopic appendectomy with drainage abdominal abscess Surgeon Zenon Marin MD Payroll And Benefits Coordinator Kasandra SAENZ Anesthesia General and Local Indications Patient was awakened about 2:00 a.m. this morning with right lower quadrant pain. The pain was persistent and severe. He came to the emergency room. His white blood cell count was normal but CT scan showed acute appendicitis with a phlegmon or possibly abscess. He continues to be tender with right lower quadrant pain. He is taken to surgery now for robotic laparoscopic appendectomy. Findings He had a very dilated appendix that had ruptured and formed an abscess. It was extremely adherent to distal ileum. Tissue planes were obscured and difficult to dissect the gallbladder. There was a large abscess which was able to be drained and suctioned before much contamination occurred. Description of Procedure Patient was taken to surgery and induced into general anesthesia. The abdomen is prepped and draped. Initial trocar was a left subcostal 5 mm applied Medical optical trocar. With this in place, we then placed 2 robotic ports on the left side of the abdomen and then converted the initial 5 mm port to another robotic port. I also placed an upper midline 10 11 trocar as an university administrative assistant port. Patient was placed in Trendelenburg in the right-side was elevated. The robotic arms were brought into the field. The camera was docked and targeted. Three robotic arms were used. Once the [address] in [address], I went to the robotic console. The university administrative assistant used suction and a blunt retractor alternating. The inflammatory process was very significant and just identifying the appendix was challenging. A blunt and sharp dissection was used and suction was used. Cautery was used for hemostasis. Eventually the base of the appendix was noted and dissection proceeded from proximal to distal on the appendix. We encountered a large abscess with white purulent fluid. This was suctioned away as it drained. There was a lot of purulent fluid within it. Very little spillage occurred. He appendix doubled back on the distal ileum near the ligament of treats. It was quite difficult to separate the appendix from the distal ileum. In one area there was a serosal tear. This was about a 1 cm and oriented transversely. 3-0 Vicryl suture were used in 0 muscular fashion to invert the serosal injury. This was not a full-thickness bowel injury. We continued our dissection and eventually were able to free the appendix completely from the distal ileum. I then ligated the appendix at its base with a 2-0 Vicryl tie. I amputated the appendix just above the ligature and cauterized the mucosa of the appendiceal stump. The appendix was then placed in a endobag and was extricated through the 10 11 epigastric trocar site. Trocar was then replaced. The robotic suction was used in the areas of dissection were repeatedly irrigated and suctioned until all debris and clotted blood had been removed. We then placed a 19 Tamazight Jl drain through the left lower quadrant trocar site and positioned it in the area of the appendiceal stump and abscess. The drain was sutured securely to the skin. After 1 last check of the intra- abdominal dissection areas, we then evacuated CO2 and removed the robotic instruments. The trocars were then removed after the robot had been undocked. Skin wounds were closed with subcuticular 4-0 Monocryl skin suture. The 10 11 port was closed at the fascial level with 0 Vicryl and the subcutaneous level with interrupted 3-0 Vicryl before closing the skin with 4-0 Monocryl. All wounds were dressed with Exofin surgical adhesive. The drain was placed to bulb suction. Patient was awakened and taken to recovery in good condition. Sponge and needle counts were correct x2. Estimated Blood Loss -50 Drains Yes (Right lower quadrant Jl drain) Packing No Pathology Yes (Appendix) Complications None Condition Stable Disposition PACU [facility] Billing Surgery - Charge Forward: Surgery Billing (Robotic laparoscopic appendectomy with drainage intra-abdominal abscess)
[2024-05-08] MEDS: IBUPROFEN IV 800 MG/200 ML 800 MG/200 ML BAG 400 MG IVPB (18:45)
[2024-05-08] MEDS: LACTATED RINGERS 1,000 ML 100 ML IV CONT (18:45)
[2024-05-08] MEDS: oxyBUTYnin CHLORIDE 5 MG TABLET PO (20:18)
[2024-05-08] MEDS: MONTELUKAST SODIUM 10 MG TABLET PO (20:18)
[2024-05-09 00:55] VITALS: BP 136/77; PULSE 80; RESP 16; TEMP 36.7; O2SAT 93
[2024-05-09] MEDS: PIPERACILLN/TAZ 3.375GM/NS50ML 3.375 GM/50 ML BAG IVPB ×4 (01:06→20:24)
[2024-05-09 04:17] VITALS: BP 124/69; PULSE 76; RESP 14; TEMP 36.6; O2SAT 98
[2024-05-09] MEDS: MORPHINE SULFATE (*CRX) 2 MG/ML INJ IV PUSH (04:41)
[2024-05-09] MEDS: LACTATED RINGERS 1,000 ML 100 ML IV CONT (06:35)
[2024-05-09 06:42] LABS: Hematocrit 40.7 % (42.0-52.0); Hemoglobin 13.1 g/dL (14.0-18.0); Mean Corpuscular HGB Conc 32.2 g/dl (32-36); Mean Platelet Volume 10.2 fl (7.4-10.4); Platelet Count Result 195 k/mm3 (150-375); Red Blood Count 4.52 M/mm3 (4.6-6.20); White Blood Count 7.7 K/mm3 (4.5-10.0)
[2024-05-09 06:54] LABS: Anion Gap 9 mmol/L (4-12); Blood Urea Nitrogen 20 mg/dL (9-20); Calcium 8.7 mg/dL (8.4-10.2); Carbon Dioxide 22 mmol/L (22-30); Chloride 107 mmol/L (98-107); Estimated CRCL calculation 68 ml/min; Estimated Glomerular Filt Rate > 60; Glucose 134 mg/dL (65-110); Potassium 4.2 mmol/L (3.4-5.0); Sodium 138 mmol/L (137-145)
[2024-05-09 08:02] VITALS: BP 144/77; PULSE 78; RESP 18; TEMP 36.7; O2SAT 96
--- NOTE | 2024-05-09 08:57 | WPDANESPN ---
Anes - Prog Note Post-Op Date/Time: 05/09/24 08:57 Cardiovascular status: normal Respiratory status: normal Airway patency: baseline Mental status: baseline Post-Op hydration status: normal Vital Signs: Last Vital Signs Temp 36.7 C 05/09/24 08:02 Pulse 78 05/09/24 08:02 Resp 18 05/09/24 08:02 BP 144/77 H 05/09/24 08:02 Pulse Ox 96 05/09/24 08:02 O2 Del Method Room Air 05/08/24 18:15 O2 Flow Rate 8 05/08/24 17:30 Pain Score (VAS): 1 I/O: Intake & Output 05/08/24 05/09/24 05/09/24 23:59 07:59 15:59 Intake Total 350 1000 Output Total 25 50 Balance 325 950 Laboratory Tests 05/09/24 06:30 05/09/24 06:30 05/09/24 06:30 WBC 7.7 RBC 4.52 L Hgb 13.1 L Hct 40.7 L MCV 90.0 MCH 29.0 MCHC 32.2 RDW 13.0 Plt Count 195 MPV 10.2 Sodium 138 Potassium 4.2 Chloride 107 Carbon Dioxide 22 Anion Gap 9 BUN 20 Creatinine 0.89 Estim Creat Clear Calc 68 Estimated GFR > 60 Glucose 134 H Calcium 8.7 Patient Feedback: Patient satisfied with anesthetic care.
[2024-05-09] MEDS: ENOXAPARIN 40 MG/0.4 ML SYRINGE SUB-Q (09:15)
[2024-05-09] MEDS: PANTOPRAZOLE SODIUM IV 40 MG VIAL IV PUSH (09:16)
--- NOTE | 2024-05-09 10:06 | PM.PNGS ---
Progress Note: A&P Assessment and Plan (1) Acute appendicitis with localized peritonitis, abscess, and gangrene: Qualifiers: Appendicitis perforation presence: with perforation Qualified Code(s): K35.33 - Acute appendicitis with perforation, localized peritonitis, and gangrene, with abscess Code(s): K35.33 - Acute appendicitis with perforation, localized peritonitis, and gangrene, with abscess Status: Acute Assessment and Plan: Postop day 1 robotic laparoscopic appendectomy with drainage of intra-abdominal abscess. Comfortable and afebrile. Continue IV Zosyn antibiotics. Ambulate and p.r.n. analgesics. (2) Ileus due to infection: Code(s): K56.7 - Ileus, unspecified; B99.9 - Unspecified infectious disease Status: Acute Assessment and Plan: Abdomen distended with absent bowel sounds. Explained adynamic ileus to the patient. Will continue NPO except for ice chips for now. Encouraged ambulation to assist with resolution. Follow serial exam, labs, vital signs. Not unexpected. Subjective Subjective Date/Time Seen: 05/09/24 10:06 Post Op day: 1 Patient reports: no new complaints, pain is less, voiding w/o difficulty, no flatus, no bowel movement and afebrile Exam Const: General: cooperative, comfortable, no acute distress, alert, awake and well nourished Orientation/consciousness: No confusion GI: Inspection: no abdominal wall ecchymosis, distended and incision (Dry and healing, ENRIKE output serosanguineous) GI Palp: Yes Firmness to palpation present (GI), Yes Tenderness to palpation present (GI) (Appropriate tenderness) and No Hernia present Auscultation: absent bowel sounds Objective Data Vital Signs Vital Signs: Vital Signs - 24 hr 05/08/24 13:50 05/08/24 14:45 05/08/24 17:18 Temperature 37.2 C 36.8 C 37.1 C Pulse Rate 78 75 73 Respiratory Rate 18 16 20 Blood Pressure 153/88 H 163/91 H 122/54 L Pulse Oximetry 97 100 96 Oxygen Delivery Room Air Simple Face Mask Oxygen Flow Rate 8 05/08/24 17:23 05/08/24 17:30 05/08/24 17:40 Temperature Pulse Rate 66 70 75 Respiratory Rate 17 17 15 Blood Pressure 132/81 134/68 137/74 Pulse Oximetry 97 98 98 Oxygen Delivery Simple Face Mask Simple Face Mask Room Air Oxygen Flow Rate 8 8 05/08/24 17:50 05/08/24 18:05 05/08/24 18:15 Temperature 36.5 C Pulse Rate 71 68 65 Respiratory Rate 18 16 16 Blood Pressure 134/74 140/73 137/69 Pulse Oximetry 94 92 93 Oxygen Delivery Room Air Room Air Room Air Oxygen Flow Rate 05/08/24 18:40 05/08/24 18:55 05/08/24 19:30 Temperature 36.2 C L 36.4 C 36.9 C Pulse Rate 75 73 82 Respiratory Rate 18 18 16 Blood Pressure 154/81 H 147/72 H 142/77 H Pulse Oximetry 95 94 93 Oxygen Delivery Oxygen Flow Rate 05/08/24 20:30 05/09/24 00:55 05/09/24 04:17 Temperature 36.6 C 36.7 C 36.6 C Pulse Rate 84 80 76 Respiratory Rate 20 16 14 Blood Pressure 154/96 H 136/77 124/69 Pulse Oximetry 93 93 98 Oxygen Delivery Oxygen Flow Rate 05/09/24 08:02 Temperature 36.7 C Pulse Rate 78 Respiratory Rate 18 Blood Pressure 144/77 H Pulse Oximetry 96 Oxygen Delivery Oxygen Flow Rate Intake/Output Intake/Output: Intake & Output 05/06/24 05/07/24 05/08/24 05/09/24 23:59 23:59 23:59 23:59 Intake Total 1450 1050 Output Total 25 50 Balance 1425 1000 Meds/Results Medications: Active Medications Generic Name Dose Route Start Last Admin Trade Name Freq PRN Reason Stop Dose Admin Enoxaparin Sodium 40 mg 05/09/24 09:00 05/09/24 09:15 Enoxaparin 40 Mg/0.4 Ml Syringe SUB-Q 40 mg DAILY HERNAN Administration Piperacillin/Tazobactam/Dextrose 3.375 gm in 50 mls @ 100 mls/hr 05/08/24 08:00 05/09/24 09:14 Zosyn 3.375 Gm/Ns 50 Ml IVPB 100 mls/hr Q6H HERNAN Administration Lactated Ringer's 1,000 mls @ 100 mls/hr 05/08/24 18:17 05/09/24 06:35 Lr - Lactated Ringers Iv IV CONT 100 mls/hr .Q10H HERNAN Administration Ibuprofen 800 mg in 200 mls @ 400 mls/hr 05/08/24 18:17 05/08/24 18:45 Caldolor 800 Mg/200 Ml IVPB 400 mls/hr Q6H PRN Administration Breakthrough Pain Rated 1-3 or NPO Montelukast Sodium 10 mg 05/08/24 21:00 05/08/24 20:18 Montelukast Sodium 10 Mg Tablet PO 10 mg HS HERNAN Administration Morphine Sulfate 2 mg 05/08/24 18:17 05/09/24 04:41 Morphine Sulfate (*Crx) 2 Mg/Ml Inj IV PUSH 2 mg Q2H PRN Administration Breakthrough Pain Rated 4-6 or NPO Morphine Sulfate 4 mg 05/08/24 18:17 05/08/24 20:17 Morphine Sulfate (*Crx) 4 Mg/Ml Inj IV PUSH 4 mg Q2H PRN Administration Breakthrough Pain Rated 7-10 or NPO Naloxone HCl 0.1 mg 05/08/24 18:17 Naloxone Hcl 0.4 Mg/Ml Vial IV PUSH Q2M PRN Opiate Reversal Ondansetron HCl 4 mg 05/08/24 18:17 Ondansetron Inj 4 Mg/2 Ml Vial IV PUSH Q4H PRN Nausea And Vomiting Oxybutynin Chloride 5 mg 05/08/24 21:00 05/08/24 20:18 Oxybutynin Chloride 5 Mg Tablet PO 5 mg QHS HERNAN Administration Pantoprazole Sodium 40 mg 05/09/24 09:00 05/09/24 09:16 Pantoprazole Sodium Iv 40 Mg Vial IV PUSH 40 mg QAM HERNAN Administration Radiology Results: ITS Impressions Abdomen/Pelvis CT 05/08/24 06:56 Impression: Acute appendicitis with 3.8 x 3.8 cm phlegmon versus early abscess at the appendiceal tip. 3.5 cm infrarenal abdominal aortic aneurysm. Small to moderate bilateral fat-containing hernias. Labs Labs: Laboratory Results - last 24 hr 05/09/24 06:30 WBC 7.7 RBC 4.52 L Hgb 13.1 L Hct 40.7 L MCV 90.0 MCH 29.0 MCHC 32.2 RDW 13.0 Plt Count 195 MPV 10.2 Sodium 138 Potassium 4.2 Chloride 107 Carbon Dioxide 22 Anion Gap 9 BUN 20 Creatinine 0.89 Estim Creat Clear Calc 68 Estimated GFR > 60 Glucose 134 H Calcium 8.7
[2024-05-09] MEDS: IBUPROFEN IV 800 MG/200 ML 800 MG/200 ML BAG 400 MG IVPB ×2 (10:08→23:41)
[2024-05-09 12:02] VITALS: BP 131/79; PULSE 72; RESP 18; TEMP 37.2; O2SAT 95
[2024-05-09] MEDS: KCL 20 MEQ/D5/0.9% SOD CHL 1,000 ML 100 ML IV CONT ×2 (12:43→23:39)
[2024-05-09 16:02] VITALS: BP 136/75; PULSE 70; RESP 18; TEMP 36.6; O2SAT 95
[2024-05-09] MEDS: MONTELUKAST SODIUM 10 MG TABLET PO (20:23)
[2024-05-09] MEDS: oxyBUTYnin CHLORIDE 5 MG TABLET PO (20:23)
[2024-05-09 20:26] VITALS: BP 134/73; PULSE 68; RESP 16; TEMP 36.4; O2SAT 95
[2024-05-10] MEDS: PIPERACILLN/TAZ 3.375GM/NS50ML 3.375 GM/50 ML BAG IVPB ×4 (01:45→20:27)
[2024-05-10 06:24] LABS: Hematocrit 36.9 % (42.0-52.0); Hemoglobin 11.8 g/dL (14.0-18.0); Mean Corpuscular Hemoglobin 28.9 pg (26-34); Mean Corpuscular Volume 90.4 fl (80-100); Mean Platelet Volume 10.4 fl (7.4-10.4); Platelet Count Result 182 k/mm3 (150-375); Red Blood Count 4.08 M/mm3 (4.6-6.20); Red Cell Distribution Width 13.2 % (11.5-14.5); White Blood Count 5.5 K/mm3 (4.5-10.0)
[2024-05-10 06:43] LABS: Anion Gap 6 mmol/L (4-12); Blood Urea Nitrogen 18 mg/dL (9-20); Calcium 8.6 mg/dL (8.4-10.2); Carbon Dioxide 23 mmol/L (22-30); Chloride 113 mmol/L (98-107); Estimated CRCL calculation 65 ml/min; Estimated Glomerular Filt Rate > 60; Glucose 104 mg/dL (65-110); Potassium 3.8 mmol/L (3.4-5.0); Sodium 142 mmol/L (137-145)
[2024-05-10] MEDS: ENOXAPARIN 40 MG/0.4 ML SYRINGE SUB-Q (09:14)
[2024-05-10] MEDS: PANTOPRAZOLE SODIUM IV 40 MG VIAL IV PUSH (09:14)
--- NOTE | 2024-05-10 16:17 | PM.PNGS ---
Progress Note: A&P Assessment and Plan (1) Acute appendicitis with localized peritonitis, abscess, and gangrene: Qualifiers: Appendicitis perforation presence: with perforation Qualified Code(s): K35.33 - Acute appendicitis with perforation, localized peritonitis, and gangrene, with abscess Code(s): K35.33 - Acute appendicitis with perforation, localized peritonitis, and gangrene, with abscess Status: Acute Assessment and Plan: Continue IV Zosyn antibiotics. Ambulate and p.r.n. analgesics. (2) Ileus due to infection: Code(s): K56.7 - Ileus, unspecified; B99.9 - Unspecified infectious disease Status: Acute Assessment and Plan: Resolving. Start clear liquids today and advance to full liquids for dinner. Subjective Subjective Date/Time Seen: 05/10/24 16:17 Interval history: Passing flatus. Feeling better. No fevers. No nausea/vomiting. Exam GI: Inspection: incision (intact with glue) and other (ENRIKE serosanguinous) GI Palp: Yes Soft to palpation, Yes Tenderness to palpation present (GI) (incisional), No Guarding due to palpation present (GI) and No Rebound tenderness present Auscultation: normal bowel sounds Objective Data Vital Signs Vital Signs: Vital Signs - 24 hr 05/09/24 20:26 05/10/24 08:00 Temperature 97.5 F L Pulse Rate 68 Respiratory Rate 16 Blood Pressure 134/73 Pulse Oximetry 95 Oxygen Delivery Room Air Intake/Output Intake/Output: Intake & Output 05/07/24 05/08/24 05/09/24 05/10/24 23:59 23:59 23:59 23:59 Intake Total 1650 2400 600 Output Total 25 80 275 Balance 1625 2320 325 Meds/Results Medications: Active Medications Generic Name Dose Route Start Last Admin Trade Name Freq PRN Reason Stop Dose Admin Enoxaparin Sodium 40 mg 05/09/24 09:00 05/10/24 09:14 Enoxaparin 40 Mg/0.4 Ml Syringe SUB-Q 40 mg DAILY HERNAN Administration Piperacillin/Tazobactam/Dextrose 3.375 gm in 50 mls @ 100 mls/hr 05/08/24 08:00 05/10/24 14:47 Zosyn 3.375 Gm/Ns 50 Ml IVPB 100 mls/hr Q6H HERNAN Administration Ibuprofen 800 mg in 200 mls @ 400 mls/hr 05/08/24 18:17 05/09/24 23:41 Caldolor 800 Mg/200 Ml IVPB 400 mls/hr Q6H PRN Administration Breakthrough Pain Rated 1-3 or NPO Montelukast Sodium 10 mg 05/08/24 21:00 05/09/24 20:23 Montelukast Sodium 10 Mg Tablet PO 10 mg HS HERNAN Administration Morphine Sulfate 2 mg 05/08/24 18:17 05/09/24 04:41 Morphine Sulfate (*Crx) 2 Mg/Ml Inj IV PUSH 2 mg Q2H PRN Administration Breakthrough Pain Rated 4-6 or NPO Morphine Sulfate 4 mg 05/08/24 18:17 05/08/24 20:17 Morphine Sulfate (*Crx) 4 Mg/Ml Inj IV PUSH 4 mg Q2H PRN Administration Breakthrough Pain Rated 7-10 or NPO Naloxone HCl 0.1 mg 05/08/24 18:17 Naloxone Hcl 0.4 Mg/Ml Vial IV PUSH Q2M PRN Opiate Reversal Ondansetron HCl 4 mg 05/08/24 18:17 Ondansetron Inj 4 Mg/2 Ml Vial IV PUSH Q4H PRN Nausea And Vomiting Oxybutynin Chloride 5 mg 05/08/24 21:00 05/09/24 20:23 Oxybutynin Chloride 5 Mg Tablet PO 5 mg QHS HERNAN Administration Pantoprazole Sodium 40 mg 05/09/24 09:00 05/10/24 09:14 Pantoprazole Sodium Iv 40 Mg Vial IV PUSH 40 mg QAM HERNAN Administration Radiology Results: ITS Impressions Abdomen/Pelvis CT 05/08/24 06:56 Impression: Acute appendicitis with 3.8 x 3.8 cm phlegmon versus early abscess at the appendiceal tip. 3.5 cm infrarenal abdominal aortic aneurysm. Small to moderate bilateral fat-containing hernias. Labs Labs: Laboratory Results - last 24 hr 05/10/24 06:10 WBC 5.5 RBC 4.08 L Hgb 11.8 L Hct 36.9 L MCV 90.4 MCH 28.9 MCHC 32.0 RDW 13.2 Plt Count 182 MPV 10.4 Sodium 142 Potassium 3.8 Chloride 113 H Carbon Dioxide 23 Anion Gap 6 BUN 18 Creatinine 0.93 Estim Creat Clear Calc 65 Estimated GFR > 60 Glucose 104 Calcium 8.6
[2024-05-10] MEDS: IBUPROFEN IV 800 MG/200 ML 800 MG/200 ML BAG 400 MG IVPB (18:59)
[2024-05-10 20:00] VITALS: PULSE 68; RESP 16; O2SAT 95
[2024-05-10] MEDS: oxyBUTYnin CHLORIDE 5 MG TABLET PO (20:28)
[2024-05-10] MEDS: MONTELUKAST SODIUM 10 MG TABLET PO (20:28)
--- NOTE | 2024-05-11 03:09 | PC.NURSE ---
Daylight Savings Time For Daylight Savings Time Ending in the Fall - Clocks are moved back. For Daylight Savings Time Beginning in the Spring - Clocks are moved ahead. For [facility], the time of change occurs at 0200 hrs. Time is taken from the senior sql server developer. This entry on the patient's chart recognizes the change in time reflected during documentation. Example: 2 entries for vital signs may be charted for 0200 hrs.
[2024-05-11] MEDS: PIPERACILLN/TAZ 3.375GM/NS50ML 3.375 GM/50 ML BAG IVPB ×3 (03:20→13:14)
[2024-05-11 05:50] VITALS: BP 160/90; PULSE 59; RESP 14; TEMP 36.1; O2SAT 97
[2024-05-11 06:33] LABS: Hematocrit 39.1 % (42.0-52.0); Hemoglobin 12.6 g/dL (14.0-18.0); Mean Corpuscular HGB Conc 32.2 g/dl (32-36); Mean Corpuscular Volume 89.9 fl (80-100); Mean Platelet Volume 10.4 fl (7.4-10.4); Platelet Count Result 218 k/mm3 (150-375); Red Blood Count 4.35 M/mm3 (4.6-6.20); White Blood Count 5.1 K/mm3 (4.5-10.0)
[2024-05-11 06:53] LABS: Anion Gap 8 mmol/L (4-12); Blood Urea Nitrogen 12 mg/dL (9-20); Carbon Dioxide 23 mmol/L (22-30); Chloride 110 mmol/L (98-107); Estimated CRCL calculation 67 ml/min; Estimated Glomerular Filt Rate > 60; Glucose 92 mg/dL (65-110); Potassium 3.8 mmol/L (3.4-5.0); Sodium 141 mmol/L (137-145)
[2024-05-11] MEDS: ENOXAPARIN 40 MG/0.4 ML SYRINGE SUB-Q (08:16)
[2024-05-11] MEDS: PANTOPRAZOLE SODIUM IV 40 MG VIAL IV PUSH (08:17)
--- NOTE | 2024-05-11 11:44 | PM.DS ---
DS: Admitting Diagnosis Discharge Date 05/11/2024 Admitting Diagnosis Acute appendicitis DS: Discharge Diagnosis Discharge Diagnosis (1) Acute appendicitis with localized peritonitis, abscess, and gangrene: Qualifiers: Appendicitis perforation presence: with perforation Qualified Code(s): K35.33 - Acute appendicitis with perforation, localized peritonitis, and gangrene, with abscess Code(s): K35.33 - Acute appendicitis with perforation, localized peritonitis, and gangrene, with abscess Status: Acute DS: Summary Hospital Course Reason for hospitalization: Acute appendicitis Hospital Course: This is a 74-year-old man who presented to the emergency department on 05/08/2024 with right lower quadrant abdominal pain. He had evidence of acute appendicitis and was started on broad-spectrum IV antibiotics and admitted for further treatment. He underwent robotic laparoscopic appendectomy with drainage of intra-abdominal abscess on 05/08/[address] Howard. A drain was placed at the time of surgery. He had evidence of an ileus secondary to the infection therefore he was kept initially on ice chips only. On 05/10/2024 he was beginning to have return of bowel function and was started on clear liquid diet. He was then advanced to full liquid diet that evening. On 05/11/2024 he was advanced to a regular diet. He tolerated this and was having minimal ENRIKE drain output. The ENRIKE drain was removed on 05/11/2024. He was then discharged home on 05/11/2024. Status at Discharge Functional status at discharge: independent ambulation Overall status at discharge: patient is progressing back to baseline Time Spent with Patient Time attestation: Total time spent providing and/or coordinating discharge services: Time spent: Less than 30 minutes Exam Const: General: comfortable and no acute distress Orientation/consciousness: patient oriented x3 Resp: Effort & Inspection: normal respiratory effort Auscultation: clear to auscultation bilaterally Cardio: Rate: regular rate Rhythm: regular rhythm Heart sounds: S1 normal heart sound present and S2 normal heart sound present GI: Inspection: non-distended, incision (intact with glue) and other (ENRIKE minimal serosanguinous) GI Palp: Yes Soft to palpation, Yes Tenderness to palpation present (GI) (mild RLQ), No Guarding due to palpation present (GI) and No Rebound tenderness present Auscultation: normal bowel sounds DS: Data Data Completed and Pending Pending studies at discharge: Pending at discharge 05/08/24 16:34 Surgical [PTH] Routine Labs on day of discharge: Labs from last 24 hours 05/11/24 06:00 WBC 5.1 RBC 4.35 L Hgb 12.6 L Hct 39.1 L MCV 89.9 MCH 29.0 MCHC 32.2 RDW 13.0 Plt Count 218 MPV 10.4 Sodium 141 Potassium 3.8 Chloride 110 H Carbon Dioxide 23 Anion Gap 8 BUN 12 D Creatinine 0.91 Estim Creat Clear Calc 67 Estimated GFR > 60 Glucose 92 Calcium 9.0 Preliminary micro results at discharge 05/08/24 07:52 Blood Culture - Preliminary Blood 05/08/24 07:52 Blood Culture - Preliminary Blood Imaging Radiologist's impression: ITS Impressions Abdomen/Pelvis CT 05/08/24 06:56 Impression: Acute appendicitis with 3.8 x 3.8 cm phlegmon versus early abscess at the appendiceal tip. 3.5 cm infrarenal abdominal aortic aneurysm. Small to moderate bilateral fat-containing hernias. Discharge Plan Discharge Attending physician on discharge: Zenon Howard Consulting providers: Zenon Howard Discharging Clinician: Aashish Carrillo Anticipated Discharge Date/Time: 05/11/24 14:00 Patient Disposition: Home, Self-Care Activity: other - see discharge instructions Diet: regular Wound Care Instructions: other - see discharge instructions Discharge Instructions: DISCHARGE INSTRUCTION SHEET FOR DR. HOWARD PATIENT TO TAKE HOME 1. May shower tomorrow. 2. Call office for: Wound increasingly painful or bleeding Vomiting Fever of greater than 101 degrees 3. Expect some blood on dressing and old blood on skin. 4. If no bowel movement for three days, take 1 oz. (30 ml) Milk of Magnesia, if no results, take Fleets enema. 5. No heavy lifting > 10-15 pounds x 2-3 weeks 6. No driving for 3 days or while taking narcotic pain medications. <del>7.</del> <del>Inguinal</del> <del>hernias</del> <del>(men):</del> <del>Ice</del> <del>to</del> <del>groin</del> <del>for</del> <del>8</del> <del>hours:</del> <del>30</del> <del>minutes</del> <del>on,</del> <del>30</del> <del>minutes</del> <del>off.</del> <del>Fresh</del> <del>ice</del> <del>every</del> <del>2</del> <del>hours</del> 8. Up walking 10-30 minutes three times per day. 9. Resume previous home medications. 10. Follow-up 10-14 days in office for wound check or as previously scheduled. 11. Oral pain medications prescription to be sent home with patient. 12. NUTRITION: Start out by drinking fluids and increase your diet as tolerated. If you experience nausea, try dry toast, crackers, and 7-UP. If nausea or vomiting persists, contact your surgeon?s office. Rev. 02/15 Patient Instructions: Antibiotic Form, Pain Management in Older Adults (DC), Pain Management After Surgery (DC) Patient Language: Mohawk Stand Alone Forms: General Discharge Information Follow-up/Referrals: Zenon Howard MD [Physician] - Call for Appointment Discharge Medications: New hydrocodone-acetaminophen 5-325 mg tablet 1 tablet PO Q4H PRN (Reason: pain) Qty: 10 0RF amoxicillin-pot clavulanate 875-125 mg tablet 1 tablet PO Q12H 7 Days Qty: 14 0RF metronidazole 500 mg tablet 500 mg PO Q8H 7 Days Qty: 21 0RF Continued multivitamin [One-A-Day Essential] Tablet 1 tablet PO DAILY apple cider vinegar 500 mg tablet 500 mg PO DAILY ascorbic [id number] 1,000 mg powder effervescent in packet 1,000 ea PO DAILY pantoprazole 40 mg tablet,delayed release (DR/EC) 40 mg PO QAM Qty: 90 3RF naproxen sodium [Aleve] 220 mg capsule 220 mg PO BID PRN (Reason: pain) montelukast 10 mg tablet 10 mg PO HS atorvastatin 40 mg tablet 40 mg PO DAILY Qty: 90 3RF oxybutynin chloride 5 mg tablet 5 mg PO QHS Qty: 90 3RF Date of admission: 05/08/24 18:17 Primary Care Provider: Harshil Schultz Admitting Provider: Zenon Howard Attending physician on admission: Zenon Howard Condition: Improved
== END 2024-05-11 14:10 | disposition home or self-care (01) | DRG 398 ==
LOC: ANHED 08:00 → ANH3MEDSUR 08:57
PROVIDERS: Admitting Provider Surgery; Emergency Provider Emergency Medicine; PCP Family Medicine Adolescent Medicine; Visit Provider Surgery
PROC: 0DTJ4ZZ Resection of Appendix, Percutaneous Endoscopic Approach (ICD-10-PCS; CPT 44970; principal; 2024-05-08 14:30)
DX: K35.33 Acute appendicitis with perforation, localized peritonitis, and gangrene, with abscess (principal); K56.0 Paralytic ileus; Z90.49 Acquired absence of other specified parts of digestive tract
CPT/HCPCS: 36415; 74177; 80048; 80053; 81001; 83690; 85025; 85027; 85055; 87040; 88304; 96361; 96374; 96375; 96376; 99285; A9270; G0378; J1100; J1650; J1741; J2003; J2270; J2405; J2470; J2543; J2704; J3010; J3480; J7030; J7120; Q9967

== ENCOUNTER 2025-01-02 07:10 | Outpatient (CLI) | payer MEDICARE, SELFPAY ==
[2025-01-02 08:38] LABS: Alanine Aminotransferase 30 U/L (6-50); Albumin Level 4.0 g/dL (3.5-5.1); Alkaline Phosphatase 85 U/L (38-126); Anion Gap 5 mmol/L (4-12); Aspartate Amino Transferase 29 U/L (17-59); Bilirubin,Total 0.6 mg/dL (0.2-1.3); Blood Urea Nitrogen 20 mg/dL (9-20); Calcium 9.3 mg/dL (8.4-10.2); Carbon Dioxide 29 mmol/L (22-30); Chloride 105 mmol/L (98-107); Cholesterol 155 mg/dL (0-200); Estimated Glomerular Filt Rate > 60; Glucose 89 mg/dL (65-110); HDL Direct 43 mg/dL; Potassium 4.4 mmol/L (3.4-5.0); Sodium 139 mmol/L (137-145); Total Protein 6.6 g/dL (6.3-8.2); Triglycerides 107 mg/dL (<150)
[2025-01-02 09:14] LABS: Prostate Specific Antigen 2.8 ng/mL (< OR = 4.0)
== END 2025-01-02 07:11 | disposition home or self-care (01) ==
LOC: ANHLAB 07:12
PROVIDERS: PCP Family Medicine Adolescent Medicine; Visit Provider Family Medicine Adolescent Medicine
DX: Z12.5 Encounter for screening for malignant neoplasm of prostate (principal); I70.0 Atherosclerosis of aorta; E78.2 Mixed hyperlipidemia
CPT/HCPCS: 36415; 80053; 80061; 84153; G0103